=== PATIENT | female | born 1950 | race Caucasian/White ===

== ENCOUNTER → 2017-01-30 | Outpatient (CLI) | payer MEDICARE, BC ==
--- NOTE | 2017-01-30 11:24 | CT ---
EXAM DESCRIPTION: Head w/wo Contrast CLINICAL HISTORY: 66 years, Female, [place] COMPARISON: FINDINGS: Unenhanced and enhanced images through the brain. This examination was performed according to our departmental dose optimization program, which includes automatic exposure control, adjustment of the MA and/or kV according to the patient size and/or use of iterative reconstruction technique. On the precontrast images. No hemorrhage identified. Benign-appearing physiologic basal ganglia calcification. Postcontrast no abnormalities identified. Mild microischemic changes periventricular white matter. Small amount of mucosal thickening ethmoid and right sphenoid sinuses. IMPRESSION: Age-appropriate appearance of the brain. No abnormal contrast enhancement. No Findings hemorrhage or mass. Electronically signed by: Guy Forrest MD 01/30/2017 11:23 AM CDT
== END | disposition home or self-care (01) ==
LOC: CT 10:08
PROVIDERS: ATTEND General Practice
DX: R55 Syncope and collapse (principal)